=== PATIENT | female | born 1995 | race Caucasian/White ===

== ENCOUNTER 2018-04-26 22:27 | Emergency (ER) | payer OTHER ==
[~2018-04-26] VITALS: Ht 167.6 cm; Wt 54.5 kg
[~2018-04-26 22:27] MED LIST: ZOFRAN ODT4 MG PO
[2018-04-26 22:32] VITALS: PULSE 78; TEMP 97.7
[2018-04-26 22:59] LABS: BASO # 0.1 (0.0-0.2); BASO % 0.5 % (0.0-2.0); EOS # 0.1 (0.0-0.7); EOS % 0.9 % (0-4.0); GRAN # 6.1 (1.4-6.5); GRAN % 65.8 % (42.2-75.2); HEMATOCRIT 40.4 % (37.0-47.0); HEMOGLOBIN 13.8 g/dl (12.5-16.0); LYMPH # 2.4 (1.2-3.4); LYMPH % 26.3 % (20.0-51.0); MEAN CELL VOLUME 88 fl (80.0-100.0); MEAN CORPUSCULAR HEMOGLOBIN 30 pg (27.0-31.0); MEAN CORPUSCULAR HGB CONC 34 g/dl (33.0-37.0); MEAN PLATELET VOLUME 11.7 fl (7.4-10.4); MONO # 0.6 (0.1-0.6); MONO % 6.3 % (1.7-9.3); PLATELET COUNT 157 K/mm3 (130-400); REDCELL DISTRIBUTION WIDTH-CV 12.2 % (11.5-14.5)
[2018-04-26 23:11] LABS: ALANINE AMINOTRANSFERASE 26 U/L (9-52); ALBUMIN 4.5 gm/dL (3.5-5.0); ALKALINE PHOSPHATASE 42 U/L (50-136); ANION GAP 6 mmol/L (7-16); AST,SGOT 20 U/L (15-37); BILIRUBIN,TOTAL 0.2 mg/dL (0.0-1.0); BLOOD UREA NITROGEN 10 mg/dL (7-17); C-REACTIVE PROTEIN < 0.5 mg/dL (0.0-0.9); CALCIUM 9.3 mg/dL (8.4-10.2); CARBON DIOXIDE 29 mmol/L (22-30); CHLORIDE 105 mmol/L (98-107); CREATININE, serum 0.54 mg/dL (0.52-1.25); GLUCOSE 93 mg/dL (74-106); LIPASE 108 U/L (23-300); POTASSIUM 3.7 mmol/L (3.4-5.0); SODIUM 139 mmol/L (137-145); TOTAL PROTEIN 7.2 gm/dL (6.4-8.2)
[2018-04-27 00:02] LABS: COLLECTION METHOD CLEAN CATCH
[2018-04-27 00:11] LABS: AMORPHOUS CRYSTAL Present /uL; MUCOUS Present /lpf; PH 7 (5-8); URINE APPEARANCE Cloudy; URINE BACTERIA Rare /hpf; URINE BILIRUBIN Negative (NEGATIVE); URINE BLOOD Negative (NEGATIVE); URINE COLOR Yellow; URINE GLUCOSE Negative (NEGATIVE); URINE KETONE Trace (NEGATIVE); URINE LEUKOCYTE ESTERASE Negative (NEGATIVE); URINE NITRATE Negative (NEGATIVE); URINE PROTEIN(semi-quant) 1+ (NEGATIVE); URINE RBC 0-2 /hpf
[2018-04-27 00:52] VITALS: BP 97/52
== END 2018-04-27 00:52 | disposition home or self-care (01) ==
LOC: COL.ER 22:27
PROVIDERS: Family Medicine
DX: K52.9 Noninfective gastroenteritis and colitis, unspecified (principal)
CPT/HCPCS: C9113; J2550; J7030

== ENCOUNTER 2018-06-13 07:18 | Observation (INO) | payer OTHER ==
[2018-06-13] VITALS (11 sets, daily range): BP systolic 92–106; BP diastolic 48–67; PULSE 55–90; TEMP 97.7–98.3
[~2018-06-13] VITALS: Ht 167.6 cm; Wt 53.6 kg
[2018-06-13 07:46] LABS: COLLECTION METHOD CLEAN CATCH
[2018-06-13 07:51] LABS: BASO % 0.2 % (0.0-2.0); EOS % 0.1 % (0-4.0); GRAN # 11.9 (1.4-6.5); GRAN % 86.8 % (42.2-75.2); HEMATOCRIT 42.3 % (37.0-47.0); HEMOGLOBIN 14.3 g/dl (12.5-16.0); LYMPH # 1.1 (1.2-3.4); MEAN CELL VOLUME 89 fl (80.0-100.0); MEAN CORPUSCULAR HEMOGLOBIN 30 pg (27.0-31.0); MEAN CORPUSCULAR HGB CONC 34 g/dl (33.0-37.0); MEAN PLATELET VOLUME 12.1 fl (7.4-10.4); MONO # 0.6 (0.1-0.6); MONO % 4.5 % (1.7-9.3); PLATELET COUNT 178 K/mm3 (130-400); RED BLOOD COUNT 4.73 M/mm3 (4.10-5.30); REDCELL DISTRIBUTION WIDTH-CV 12.6 % (11.5-14.5)
[2018-06-13 07:55] LABS: MUCOUS Present /lpf; PH 5 (5-8); URINE APPEARANCE Cloudy; URINE BACTERIA Rare /hpf; URINE BILIRUBIN Negative (NEGATIVE); URINE BLOOD 1+ (NEGATIVE); URINE CALCIUM OXALATE CRYSTAL Present /hpf; URINE COLOR Yellow; URINE GLUCOSE Negative (NEGATIVE); URINE KETONE Negative (NEGATIVE); URINE LEUKOCYTE ESTERASE 1+ (NEGATIVE); URINE NITRATE Negative (NEGATIVE); URINE PROTEIN(semi-quant) 1+ (NEGATIVE); URINE UROBILINOGEN Negative (NEGATIVE)
[2018-06-13 08:00] LABS: ALBUMIN 4.7 gm/dL (3.5-5.0); BILIRUBIN,TOTAL 0.9 mg/dL (0.0-1.0); CALCIUM 9.8 mg/dL (8.4-10.2); CREATININE, serum 0.57 mg/dL (0.52-1.25); POTASSIUM 3.9 mmol/L (3.4-5.0); TOTAL PROTEIN 7.7 gm/dL (6.4-8.2)
[2018-06-13] MEDS ORDERED: LEVSIN 0.10.125 MG/T PO (08:08)
[2018-06-13] MEDS ORDERED: School Release (13:44)
[2018-06-13] MEDS ORDERED: MOTRIN 600600 MG/TAB PO (13:45)
[2018-06-13] MEDS ORDERED: NORCO 325 MG-51 TAB PO (13:45)
[2018-06-13] MEDS ORDERED: COLACE 100100 MG/CAP PO (13:45)
--- NOTE | 2018-06-13 14:20 | NUR ---
PATIENT BACK IN ROOM 348 POST OP LAP APPY. ORIENTED BUT DROWSY. VSS. REPORTS MILD TENDERNESS TO ABD. NOTED ABDOMINAL LAP SITES X3 CD&I AND CLOSED WITH MORENO SET. ABDOMIN IS FLAT, SOFT AND WITH POSITIVE BOWL SOUNDS. NO C/O N/V. IV FLUIDS INFUSING INTO RIGHT AC IV. HEAD TO TOE ASSESSMENT WNL. FAMILY AT BEDSIDE. NO OTHER NEEDS. CALL LIGHT IN REACH.
--- NOTE | 2018-06-13 19:34 | NUR ---
Shift assessment complete. Pt resting in bed, awake, a&o, cooperative c cares. Pt reports continued abd pain, req PRN pain med at HS. Pt denies other c/o. IV patent. Pt denies further needs. Call light in reach, family at bedside. Will monitor.
[2018-06-14 03:42] VITALS: BP 91/40; PULSE 66; TEMP 98.1
[2018-06-14 07:35] VITALS: BP 89/48; PULSE 51; TEMP 98.1
--- NOTE | 2018-06-14 08:00 | NUR ---
PATIENT IS A&O. VSS. C/O ABD PAIN RATED AT 5-6. GAVE PRN PERCOCET, TWO TABS. ABDOMIN IS SLIGHTLY DESTENDED FROM POST OP GAS. PATIENT REPORTS FEELING A LITTLE BLOATED BUT IS PASSING GAS. ABDOMINAL LAP SITES X3 ARE CD&I WITH MORENO SET. NO C/O N/V. RIGHT AC IV TO INT. HEAD TO TOE ASSESSMENT WNL. MOTHER AT BEDSIDE. PATIENT GETTING INTO SHOWER BEFORE BREAKFAST AND THEN WILL GO FOR A WALK.
--- NOTE | 2018-06-14 10:30 | NUR ---
PATIENT REQUESTING PAIN MEDS. TOO EARLY FOR ORAL PAIN MEDS. GAVE PRN MORPHINE, 2MG IV. PATIENT GETTING DRESSED AND PACKED FOR DISCHARGE
--- NOTE | 2018-06-14 11:07 | NUR ---
Initial visit; Patient and her mom thanked Weatherization Director for looking in on her and offering God's blessings and checking on Holy Communion for her.
--- NOTE | 2018-06-14 11:29 | NUR ---
PATIENT IS DISHCARGING HOME VIA WHEELCHAIR TO PERSONAL VEHICLE WITH MOTHER. GAVE DISCHARGE INSTRUCTIONS, PRESCRIPTIONS, SCHOOL RELEASE & FOLLOW UP APT. ANSWERED ALL QUESTIONS/CONCERNS. SENT HOME PERSONAL BELONGINGS. DC'D RIGHT AC IV AND COVERED WITH GAUZE & TAPE. PATIENT DISCHARGED.
== END 2018-06-14 11:29 | disposition home or self-care (01) ==
LOC: COL.ER 07:18 → SURG 10:39
PROVIDERS: Emergency Medicine; ADMIT Surgery
DX: K35.80 Unspecified acute appendicitis (principal)
CPT/HCPCS: C9113; G0378; J1100; J1885; J2060; J2270; J2405; J2543; J2550; J2704; J2710; J3010; J7030; J7120; Q9967